=== PATIENT | female | born 1950 | race Caucasian/White ===

== ENCOUNTER → 2018-10-13 | Day surgery (SDC) | payer OTHER ==
[~2018-10-13] VITALS: Ht 167.6 cm; Wt 90.7 kg
[~2018-10-13] MED LIST: AMLODIPINE-ATO1 EACH PO; COREG25 MG PO; NUCYNTA ER50 M1 PO; OXYCODONE HCL5 M1 PO
--- NOTE | ~2018-10-13 | O ---
[place], [place] OPERATIVE NOTE NAME: SHELLIE GARCIA Raul UNIT #: [id number] ROOM: DOCTOR: SHIVA CALIXTO MD BIRTHDATE: [birth year] DOS: 10/13/2018 GASTROENDOSCOPIC REPORT HISTORY OF PRESENT ILLNESS: A 67-year-old patient who has presented with chief complaint of Cologuard positivity, concern about colonic screening, undergoing investigation. ALLERGIES: No known medication. FAMILY HISTORY: Noncontributory. PAST SURGICAL HISTORY: Cholecystectomy, replacement left knee. PAST MEDICAL HISTORY: Hypertension, hyperlipidemia, seasonal allergies. SOCIAL HISTORY: Nonsmoker, social alcohol consumer. PROCEDURE: Today's procedure part of investigation is colonoscopy plus piecemeal polypectomy x 2. PREMEDICATION: Propofol. SCOPE: Olympus forward-viewing colonoscope 10L video. REPORT: After putting the patient in left lateral position and application of lubricant to the scope, the scope was introduced. Thereafter, under direct visualization, advanced through the length of colon without difficulty. Colon mucosa and vascularity carefully examined, sessile polypoid lesion in splenic flexure. Sessile polypoid lesion in hepatic flexure x 2 was with piecemeal polypectomy removed. Base of cecum explored. Ileocecal valve was defined. Photographic series obtained. The patient extubated, tolerated the procedure well. IMPRESSION: Sessile polypoid lesion, hepatic flexure. Sessile polypoid lesion, splenic flexure. PLAN AND DISCUSSION: Awaiting biopsy results. Clinical reassessment. High fiber diet was recommended. ACTIVITY: Ad andrea. FOLLOWUP: Routinely with you in office, p.r.n. visit with us in [facility]. Thank you again for your kind referral. [place], [place] OPERATIVE NOTE NAME: RADHAGERMANSHELLIE R UNIT #: [id number] ROOM: DOCTOR: SHIVA CALIXTO MD BIRTHDATE: [birth year] SHIVA CALIXTO MD CM:OPRECORD:OPERATIVE NOTE [id number] SHIVA CALIXTO MD 10/26/18 1431 interface
[2018-10-13 09:20] VITALS: BP 171/86
[2018-10-13 10:33] VITALS: BP 129/83
[2018-10-13 10:49] VITALS: BP 130/88
[2018-10-13 11:00] VITALS: BP 149/74
== END | disposition home or self-care (01) ==
LOC: SDC 10-11 11:45
DX: D12.3 Benign neoplasm of transverse colon (principal); K63.5 Polyp of colon; E78.00 Pure hypercholesterolemia, unspecified; I10 Essential (primary) hypertension; E66.9 Obesity, unspecified; M19.90 Unspecified osteoarthritis, unspecified site; Z90.49 Acquired absence of other specified parts of digestive tract; Z98.890 Other specified postprocedural states; Z96.652 Presence of left artificial knee joint; Z98.51 Tubal ligation status; Z79.899 Other long term (current) drug therapy; Z72.89 Other problems related to lifestyle; Z68.32 Body mass index [BMI] 32.0-32.9, adult; Z83.3 Family history of diabetes mellitus

== ENCOUNTER → 2023-07-30 | Outpatient (CLI) | payer MEDICARE | END | disposition home or self-care (01) | LOC: MAMMO 10:35 | PROVIDERS: ATTEND Internal Medicine | DX: Z12.31 Encounter for screening mammogram for malignant neoplasm of breast (principal) ==